=== PATIENT | female | born 1965 | race Hispanic/Latino ===

== ENCOUNTER 2021-07-07 16:01 | Emergency (ER) | payer MEDICAID, OTHER ==
[2021-07-07] MEDS ORDERED: Ketorolac Tromethamine 60 MG/2 ML VIAL ONE (16:24)
== END 2021-07-07 16:38 | disposition home or self-care (01) ==
LOC: NAV ERS 16:01
DX: M65.841 Other synovitis and tenosynovitis, right hand (principal); I10 Essential (primary) hypertension; E78.5 Hyperlipidemia, unspecified; E78.00 Pure hypercholesterolemia, unspecified; E11.9 Type 2 diabetes mellitus without complications; J43.9 Emphysema, unspecified; J45.909 Unspecified asthma, uncomplicated; Z79.82 Long term (current) use of aspirin; Z79.84 Long term (current) use of oral hypoglycemic drugs; Z79.899 Other long term (current) drug therapy
CPT/HCPCS: 96372; 99283; J1885

== ENCOUNTER 2022-07-31 09:07 | Emergency (ER) | payer OTHER ==
[2022-07-31] MEDS ORDERED: Azithromycin 250 MG TAB ONE (09:41)
[2022-07-31] MEDS ORDERED: Ipratropium/Albuterol 3 ML NEB ONE (09:41)
[2022-07-31] MEDS ORDERED: methylPREDNISolone Sod Succ/PF 125 MG/2 ML VIAL ONE (09:41)
[2022-07-31 09:55] LABS: #Basophils 0.1 thou/uL (0.0-0.2); #Eosinphils 0.1 thou/uL (0.0-0.7); #Lymphocytes 2.6 thou/uL (1.20-3.40); #Monocytes 0.4 thou/uL (0.11-0.59); #Neutrophils 4.1 thou/uL (1.40-6.50); %Lymphocytes 36.4 % (21.0-51.0); %Monocytes 4.9 % (0.0-10.0); %Neutrophils 56.7 % (42.0-75.0); Hemoglobin 14.3 g/dL (12.0-16.0); Mean Corpuscular HGB CONC 31.2 g/dL (32.0-36.0); Mean Corpuscular Hemoglobin 28.3 pg (27.0-31.0); Mean Corpuscular Volume 90.7 fl (78.0-98.0); Mean Platelet Volume 7.1 fL (7.4-10.4); Platelet Count 239 10x3/uL (130-400); RBC Distribution Width 11.9 % (11.5-14.5); Red Blood Cell (RBC) Count 5.04 mill/uL (4.20-5.40); White Blood Cell (WBC) Count 7.3 10x3/uL (4.8-10.8)
[2022-07-31 10:03] LABS: Chloride 106 mmol/L (98-107); Sodium 138 mmol/L (136-145)
[2022-07-31 10:21] LABS: ALT (SGPT) 19 U/L (8-55); AST (SGOT) 11 U/L (5-34); Albumin 4.3 g/dL (3.5-5.0); Alkaline Phosphatase 115 U/L (40-110); BUN (Urea Nitrogen) 11 mg/dL (9.8-20.1); Bilirubin, Total 0.4 mg/dL (0.2-1.2); Calc. Creatinine Clearance 0 mL/min (70-130); Carbon Dioxide 21 mmol/L (22-29); Estimated GFR 102; Globulin 3.2 g/dL (2.4-3.5); Glucose 200 mg/dL (70-105); Protein, Total 7.5 g/dL (6.0-8.3)
[2022-07-31 10:28] LABS: Calcium 9.2 mg/dL (7.6-10.4)
[2022-07-31 10:30] LABS: Anion Gap 11 mmol/L (10-20)
== END 2022-07-31 10:22 | disposition home or self-care (01) ==
LOC: NAV ERS 09:07
DX: J44.1 Chronic obstructive pulmonary disease with (acute) exacerbation (principal); I10 Essential (primary) hypertension; E11.9 Type 2 diabetes mellitus without complications; E78.00 Pure hypercholesterolemia, unspecified; Z87.891 Personal history of nicotine dependence; Z79.82 Long term (current) use of aspirin; Z79.84 Long term (current) use of oral hypoglycemic drugs; Z79.899 Other long term (current) drug therapy
CPT/HCPCS: 71045; 80053; 83735; 84484; 85025; 96374; J2930; J7620

== ENCOUNTER 2022-11-20 12:03 | Outpatient (CLI) | payer OTHER | END 2022-11-20 12:04 | disposition home or self-care (01) | LOC: NAV RAD 12:03 | PROVIDERS: ATTEND Family Medicine | DX: J45.901 Unspecified asthma with (acute) exacerbation (principal) | CPT/HCPCS: 71046 ==